=== PATIENT | female | born 2000 | race Two or more races ===

== ENCOUNTER 2022-07-02 12:24 | Emergency (ER) | payer MEDICAID, OTHER ==
[~2022-07-02] VITALS: Ht 154.9 cm; Wt 60.0 kg
[2022-07-02 12:26] VITALS: BP 132/79
[2022-07-02] MEDS ORDERED: LORAZEPAM 1MG TABLET PO ONE (13:15)
[2022-07-02] MEDS ORDERED: ERYTHROMYCIN BASE 0.5% OPHTH OINT 3.5GM LEFTEYE ONE (13:30)
[2022-07-02] MEDS ORDERED: ERYT1OIN6 EACHEYE (14:04)
== END 2022-07-02 17:26 | disposition home or self-care (01) ==
LOC: ER 12:24
DX: H10.212 Acute toxic conjunctivitis, left eye (principal)
CPT/HCPCS: 99283; Z7610